=== PATIENT | male | born 1985 | race Caucasian/White ===

== ENCOUNTER 2017-03-09 12:43 | Emergency (ER) | payer OTHER ==
[2017-03-09 13:22] VITALS: BP 148/101
--- NOTE | 2017-03-09 14:32 | UC ---
Abdominal Pain Male HPI - HPI Summary HPI Summary: c/o constipation and generalized abdominal pain for the past 6 days. 5 days ago he had an episode of vomiting for which he took peptobismol and has had no recurrence of vomiting ever since. He denies any nausea since then and has been eating and drinking as usual ever since. He states he does not suffer from constipation usually, yesterday took Exlax and was able to have a bowel movement , which was dark brown, no mucus or blood. Denies any abdominal pain at this moment - History of Current Complaint Chief Complaint: UCGI Stated Complaint: ABD PAIN Time Seen by Provider: 03/09/17 14:22 Hx Obtained From: Patient Onset/Duration: Sudden Onset, Lasting Days Timing: Intermittent Episodes Lasting: Severity Initially: Mild Severity Currently: Mild Pain Intensity: 0 Location: Diffuse Radiates: No Character: Cramping Aggravating Factor(s): Nothing Alleviating Factor(s): Other - BM Associated Signs And Symptoms: Positive: Constipation - Risk Factors Testicular Torsion: Negative - Allergies/Home Medications Allergies/Adverse Reactions: Allergies Allergy/AdvReac Type Severity Reaction Status Date / Time No Known Allergies Allergy Verified 03/09/17 13:22 Home Medications: Home Medications Sennosides [Ex-Lax] 1 tab PO ONCE 03/09/17 [History Confirmed 03/09/17] PMH/Surg Hx/FS Hx/Imm Hx Previously Healthy: Yes - Surgical History Surgical History: Yes Surgery Procedure, Year, and Place: wisdom teeth - Family History Known Family History: Positive: Diabetes - Social History Alcohol Use: Weekly Substance Use Type: None Smoking Status (MU): Never Smoked Tobacco - Immunization History Most Recent Tetanus Shot: 7 yrs ago Review of Systems Constitutional: Negative Gastrointestinal: Other - constipation All Other Systems Reviewed And Are Negative: Yes Physical Exam Triage Information Reviewed: Yes Appearance: Well-Appearing, Obese Vital Signs: Initial Vital Signs Temp 98.9 F 03/09/17 13:18 Pulse 82 03/09/17 13:18 Resp 18 03/09/17 13:18 BP 148/101 03/09/17 13:18 Pulse Ox 98 03/09/17 13:18 Vital Signs Reviewed: Yes Eye Exam: Normal ENT Exam: Normal Dental Exam: Normal Neck exam: Normal Respiratory Exam: Normal Cardiovascular Exam: Normal Abdominal Exam: Normal - BS positive, no distension, no HSM, non tender, no rebound Bowel Sounds: Positive: Present Musculoskeletal Exam: Normal Abd Pain Male Course/Dx - Course Course Of Treatment: Sufficient intake of fluids and fruits/vegetables and fiber encouraged. Take stool softeners and probiotics as needed. Return if vomiting recurs - Differential Dx/Clinical Impression Provider Diagnoses: constipation Discharge - Discharge Plan Condition: Stable Disposition: HOME Patient Education Materials: Constipation (ED) Referrals: No Primary Care Phys,NOPCP [Primary Care Provider] -
== END 2017-03-09 14:52 | disposition home or self-care (01) ==
LOC: UCEAST 12:43
DX: K59.00 Constipation, unspecified (principal)
CPT/HCPCS: 99211; G0463

== ENCOUNTER 2018-07-10 22:14 | Emergency (ER) | payer OTHER ==
[2018-07-10 23:33] LABS: ABS Basophils 0.1 10^3/ul (0-0.2); ABS Lymphocytes 2.1 10^3/ul (1.0-4.8); ABS Monocytes 0.8 10^3/ul (0-0.8); ABS Neutrophils 5.3 10^3/ul (1.5-7.7); Eosinophil % 0.6 %; Hematocrit 45 % (42-52); Hemoglobin 15.6 g/dL (14.0-18.0); Lymphocyte % 25.1 %; Mean Corpuscular HGB Conc 35 g/dL (31-36); Mean Corpuscular Hemoglobin 32 pg (27-31); Mean Corpuscular Volume 93 fL (80-94); Mean Platelet Volume 7.8 fL (7.4-10.4); Platelet Count 261 10^3/uL (150-450); Red Blood Count 4.86 10^6 /uL (4.18-5.48); Red Cell Distribution Width 13 % (10.5-15); White Blood Count 8.2 10^3/uL (3.5-10.8)
[2018-07-10 23:40] LABS: INR 0.98 (0.82-1.09)
[2018-07-10 23:54] LABS: Albumin 4.8 g/dL (3.2-5.2); BUN/Creatinine Ratio 15.8 (8-20); Calcium 9.8 mg/dL (8.6-10.3); EGFR African American 83.9 (>60); EGFR Non-African American 69.3 (>60); Globulin 2.4 g/dL (2-4); Potassium 3.8 mmol/L (3.5-5.0); Total Bilirubin 0.5 mg/dL (0.2-1.0); Total Protein 7.2 g/dL (6.4-8.9)
[2018-07-11] MEDS ORDERED: cloNIDine TAB* 0.1 MG PO ONE (00:49)
[2018-07-11] MEDS ORDERED: cloNIDine TAB* 0.1 MG ONE (00:50)
--- NOTE | 2018-07-11 00:56 | ED ---
HPI Chest Pain - HPI Summary HPI Summary: A 33 y/o male presents to [facility] with a chief complaint of chest pain over the past week. He reports that his pain is intermittent and is relieved when he relaxes. At triage he rated his pain as a 2/10 in severity. BP at triage 176/ 111. He also reports tingling in his left hand. He denies any Hx of anxiety and denies taking any medications. He claims that he has not seen a doctor for some time, and was told that his BP has been a little elevated in the past. His mother reports that he was recently bitten by 3 ticks. The patient reports that he is currently not nervous. - History of Current Complaint Chief Complaint: EDChestPainROMI Time Seen by Provider: 07/11/18 00:34 Hx Obtained From: Patient Onset/Duration: Started Days Ago, Still Present Timing: Intermittent, Lasting Minutes Initial Severity: Mild Current Severity: Mild Pain Intensity: 2 Pain Scale Used: 0-10 Numeric Chest Pain Location: Diffuse Chest Pain Radiates: Yes Chest Pain Radiates To:: Other - tingling in left hand Character: Other: - tingling in left hand Aggravating Factor(s): Nothing Alleviating Factor(s): Rest Associated Signs and Symptoms: Negative: Anxiety, Fever - Allergy/Home Medications Allergies/Adverse Reactions: Allergies Allergy/AdvReac Type Severity Reaction Status Date / Time No Known Allergies Allergy Verified 03/09/17 13:22 PMH/Surg Hx/FS Hx/Imm Hx Sensory History: Denies: Hx Deafness EENT History: Denies: Hx Deafness Psychiatric History: Denies: Hx Anxiety - Surgical History Surgery Procedure, Year, and Place: wisdom teeth Infectious Disease History: No Infectious Disease History: Denies: History Other Infectious Disease, Traveled Outside the [place] in Last 30 Days - Family History Known Family History: Positive: Diabetes - Social History Alcohol Use: Weekly Hx Substance Use: No Substance Use Type: Reports: None Hx Tobacco Use: No Smoking Status (MU): Never Smoked Tobacco Review of Systems Negative: Fever Positive: Chest Pain Positive: Paresthesia Negative: Anxious All Other Systems Reviewed And Are Negative: Yes Physical Exam - Summary Physical Exam Summary: VITAL SIGNS: Reviewed. GENERAL: Patient is a well-developed and nourished MALE who is lying comfortable in the stretcher. Patient is not in any acute respiratory distress. HEAD AND FACE: No signs of trauma. No ecchymosis, hematomas or skull depressions. No sinus tenderness. EYES: PERRLA, EOMI x 2, No injected conjunctiva, no nystagmus. EARS: Hearing grossly intact. Ear canals and tympanic membranes are within normal limits. MOUTH: Oropharynx within normal limits. NECK: Supple, trachea is midline, no adenopathy, no JVD, no carotid bruit, no c- spine tenderness, neck with full ROM CHEST: Symmetric, no tenderness at palpation LUNGS: Clear to auscultation bilaterally. No wheezing or crackles. CVS: Regular rate and rhythm, S1 and S2 present, no murmurs or gallops appreciated. ABDOMEN: Soft, non-tender. No signs of distention. No rebound no guarding, and no masses palpated. Bowel sounds are normal. EXTREMITIES: FROM in all major joints, no edema, no cyanosis or clubbing. NEURO: Alert and oriented x 3. No acute neurological deficits. Speech is normal and follows commands. SKIN: Dry and warm Triage Information Reviewed: Yes Vital Signs On Initial Exam: Initial Vitals Temp Pulse Resp BP Pulse Ox 98.9 F 84 18 176/111 98 07/10/18 22:24 07/10/18 22:24 07/10/18 22:24 07/10/18 22:24 07/10/18 22:24 Vital Signs Reviewed: Yes Diagnostics - Vital Signs Vital Signs Temp Pulse Resp BP Pulse Ox 07/10/18 22:24 98.9 F 84 18 176/111 98 - Laboratory Lab Results: Lab Results 07/10/18 07/10/18 07/10/18 Range/Units 23:26 23:26 23:26 WBC 8.2 (3.5-10.8) 10^3/uL RBC 4.86 (4.18-5.48) 10^6 /uL Hgb 15.6 (14.0-18.0) g/dL Hct 45 (42-52) % MCV 93 (80-94) fL MCH 32 H (27-31) pg MCHC 35 (31-36) g/dL RDW 13 (10.5-15) % Plt Count 261 (150-450) 10^3/uL MPV 7.8 (7.4-10.4) fL Neut % (Auto) 64.2 % Lymph % (Auto) 25.1 % [place] % (Auto) 9.4 % Eos % (Auto) 0.6 % Baso % (Auto) 0.7 % Absolute Neuts (auto) 5.3 (1.5-7.7) 10^3/ul Absolute Lymphs (auto) 2.1 (1.0-4.8) 10^3/ul Absolute Monos (auto) 0.8 (0-0.8) 10^3/ul Absolute Eos (auto) 0.0 (0-0.6) 10^3/ul Absolute Basos (auto) 0.1 (0-0.2) 10^3/ul Absolute Nucleated RBC 0.0 10^3/ul Nucleated RBC % 0.0 INR (Anticoag Therapy) 0.98 (0.82-1.09) Sodium 138 (135-145) mmol/L Potassium 3.8 (3.5-5.0) mmol/L Chloride 105 (101-111) mmol/L Carbon Dioxide 26 (22-32) mmol/L Anion Gap 7 (2-11) mmol/L BUN 19 (6-24) mg/dL Creatinine 1.20 H (0.67-1.17) mg/dL Est GFR ( Amer) 83.9 (>60) Est GFR (Non-Af Amer) 69.3 (>60) BUN/Creatinine Ratio 15.8 (8-20) Glucose 108 H (70-100) mg/dL Calcium 9.8 (8.6-10.3) mg/dL Total Bilirubin 0.50 (0.2-1.0) mg/dL AST 15 (13-39) U/L ALT 16 (7-52) U/L Alkaline Phosphatase 47 (34-104) U/L Troponin I 0.00 (<0.04) ng/mL Total Protein 7.2 (6.4-8.9) g/dL Albumin 4.8 (3.2-5.2) g/dL Globulin 2.4 (2-4) g/dL Albumin/Globulin Ratio 2.0 (1-3) Result Diagrams: 07/10/18 23:26 07/10/18 23:26 Lab Statement: Any lab studies that have been ordered have been reviewed, and results considered in the medical decision making process. - EKG 22:22 Cardiac Rate: NL - 84 bpm EKG Rhythm: Sinus Rhythm Summary of EKG Findings: NSR at 84 bpm. Normal axis. Normal interval. No ischemic changes Chest Pain Course/Dx - Course Course Of Treatment: A 33 y/o male presents to [facility] with a chief complaint of chest pain over the past week. He reports that his pain is intermittent and is relieved when he relaxes. BP at triage 176/111. The physical exam was unremarkable. EKG showed NSR at 84 bpm. Normal axis. Normal interval. No ischemic changes. In the ED course the patient was given Clonidine PO. Bloodwork and chemistries obtained and are WNL. The patient will be discharged with a prescription for Lisinopril and follow up with his PCP. The patient is agreeable with this plan. - Diagnoses Provider Diagnoses: Chest pain, atypical, Hypertension Discharge - Sign-Out/Discharge Documenting (check all that apply): Patient Departure - DC Patient Received Moderate/Deep Sedation with Procedure: No - Discharge Plan Condition: Stable Disposition: HOME Prescriptions: Lisinopril TAB* [Prinivil TAB 5 MG*] 5 mg PO DAILY #30 tab Patient Education Materials: Chest Pain (DC), Hypertension (ED) Referrals: [facility] [Outside] (2-3 days) Kathie Foss MD [Medical Doctor] - Additional Instructions: PLEASE RETURN TO THE ED IMMEDIATELY FOR WORSENING OR CONCERNING SYMPTOMS. - Billing Disposition and Condition Condition: STABLE Disposition: Home - Attestation Statements Document Initiated by Tanya: Yes Documenting Scribe: Henrique Dotson Provider For Whom Tanya is Documenting (Include Credential): Connor Velazquez MD Scribe Attestation: Henrique Pavon, scribed for Connor Velazquez MD on 07/11/18 at 2054. Scribe Documentation Reviewed: Yes Provider Attestation: The documentation as recorded by the Henrique jules accurately reflects the service I personally performed and the decisions made by me, Connor Velazquez MD Status of Scribe Document: Viewed
[2018-07-11 03:56] VITALS: BP 120/77
== END 2018-07-11 03:55 | disposition home or self-care (01) ==
LOC: ED 22:14
DX: R07.89 Other chest pain (principal); I10 Essential (primary) hypertension
CPT/HCPCS: 36415; 80053; 84484; 85025; 85610; 93005; 99283; A9270-GY